=== PATIENT | male | born 1985 | race Caucasian/White ===

== ENCOUNTER 2021-01-17 13:21 | Outpatient (CLI) | payer OTHER, SELFPAY ==
--- NOTE | ~2021-01-17 | XR_ITS ---
EXAMINATION: XR tibia fibula RT 2V DATE: 01/17/2021 13:48 INDICATION: Right lower limb pain. TECHNIQUE: 2 views of right tibia and fibula on 4 radiographs were obtained. COMPARISON: None. FINDINGS: Bone alignment is normal. No fracture. There is mild osteoarthritis of patellofemoral daja rtment of the knee. There is an enthesophyte at posterior aspect of calcaneal tuberosity. IMPRESSION: 1. Mild right knee osteoarthritis. Reviewed, dictated and finalized at location A.
--- NOTE | ~2021-01-17 | US_ITS ---
EXAMINATION: US venous doppler LE RT EXAM DATE: 01/17/2021 13:59 INDICATION: Right leg pain. TECHNIQUE: Multiple grayscale, color flow and Doppler images of the right lower extremity deep venous system were obtained and reviewed. There is no prior study for comparison. FINDINGS: The right common femoral, femoral and profunda veins demonstrate normal color flow, respira tory variation, augmentation and compressibility. Compressibility, color flow confirmed within the r ight popliteal, posterior tibial, peroneal, and greater saphenous veins. Right inguinal/groin lymph n ode measuring 1.5 x 2.6 x 2.5 cm, essentially echogenic fatty hilum, most likely reactive. IMPRESSION: 1. No right lower extremity deep venous thrombosis. 2. Enlarged right inguinal lymph node most likely reactive. Reviewed, dictated and finalized at location A.
== END 2021-01-17 13:22 | disposition home or self-care (01) ==
PROVIDERS: PCP Registered Nurse; Visit Provider Registered Nurse
DX: M79.604 Pain in right leg (principal); M17.11 Unilateral primary osteoarthritis, right knee
CPT/HCPCS: 73590; 93971

== ENCOUNTER 2022-06-22 07:36 | Outpatient (CLI) | payer OTHER, SELFPAY ==
--- NOTE | ~2022-06-22 | US_ITS ---
EXAMINATION: US soft tissue abdomen DATE: 06/22/2022 08:23 INDICATION: Umbilical hernia without obstruction and without gangrene. TECHNIQUE: Multiple grayscale and Doppler ultrasound images of the abdomen were obtained. COMPARISON: None FINDINGS: There are umbilical and supraumbilical ventral hernias containing fat. IMPRESSION: 1. Umbilical and supraumbilical ventral hernias containing fat. Reviewed, dictated and finalized at location A.
== END 2022-06-22 07:37 ==
PROVIDERS: PCP Registered Nurse; Visit Provider Registered Nurse
DX: K42.9 Umbilical hernia without obstruction or gangrene (principal); K43.9 Ventral hernia without obstruction or gangrene
CPT/HCPCS: 76705

== ENCOUNTER 2024-06-18 09:55 | Outpatient (CLI) | payer OTHER, SELFPAY ==
--- NOTE | ~2024-06-18 | XR_ITS ---
XR hip LT 2V w AP pelvis 06/18/2024 10:36 INDICATION: Left hip pain PROCEDURE: AP pelvis and 2 views left hip COMPARISON: No prior studies for comparison. FINDINGS: Fracture, dislocation or subluxation is not identified. The soft tissues appear within norm al limits. No foreign bodies are identified. IMPRESSION: 1: NO ACUTE BONE OR JOINT ABNORMALITY IDENTIFIED. Reviewed, dictated and finalized at location B.
--- NOTE | ~2024-06-18 | XR_ITS ---
Left elbow Technique: AP and lateral views were obtained. Clinical History: Pain Findings: No acute fracture or dislocation is seen. Osseous alignment is anatomic. Joint spaces are p reserved. There is no displacement of the fat pads, and soft tissues are unremarkable. Impression: Unremarkable radiographs. Reviewed, dictated and finalized at location . Impression: Unremarkable radiographs.
== END 2024-06-18 09:56 | disposition home or self-care (01) ==
PROVIDERS: PCP Nurse Practitioner; Visit Provider Nurse Practitioner
DX: M25.522 Pain in left elbow (principal); M25.552 Pain in left hip
CPT/HCPCS: 73070; 73502